=== PATIENT | female | born 1940 | race Caucasian/White ===

== ENCOUNTER 2019-03-25 10:29 | Outpatient (CLI) | payer MEDICARE ==
--- NOTE | 2019-03-25 12:22 | BD ---
DEXA BONE DENSITY STUDY: Date: 03/25/19 HISTORY: 78-year-old postmenopausal female for screening. FINDINGS: Lumbar Spine: BMD (g/cm2) L1 0.863 T-Score: -1.2 L2 1.183 T-Score: 1.4 L3 1.225 T-Score: 1.3 L4 1.158 T-Score: 0.9 L1-L4 1.108 T-Score: 0.6 Left Femoral Neck: 0.563 T-Score: -2.6 Total Femur: 0.702 T-Score: -2.0 IMPRESSION: Osteoporosis. POS: CET
--- NOTE | 2019-04-20 14:24 | MMO ---
Bilateral MAMMO Bilat Screen [facility]. CLINICAL HISTORY: Patient is 78 years old and is seen for screening. The patient has no family history of breast cancer. The patient has a history of uterine cancer. VIEWS: The views performed were: bilateral craniocaudal with tomosynthesis and bilateral mediolateral oblique with tomosynthesis. This study has been interpreted with the assistance of computer-aided detection. MAMMOGRAM FINDINGS: There are scattered fibroglandular densities. There are no suspicious masses, suspicious calcifications, or new areas of architectural distortion. IMPRESSION: THERE IS NO MAMMOGRAPHIC EVIDENCE OF MALIGNANCY. A ROUTINE FOLLOW-UP MAMMOGRAM IN 1 YEAR IS RECOMMENDED. THE RESULTS OF THIS EXAM WERE SENT TO THE PATIENT. ACR BI-RADS Category 1 - Negative MAMMOGRAPHY NOTE: 1. A negative mammogram report should not delay a biopsy if a dominant of clinically suspicious mass is present. 2. Approximately 10% to 15% of breast cancers are not detected by mammography. 3. Adenosis and dense breasts may obscure an underlying neoplasm. Reported by: TATA CASTELAN MD Electonically Signed: [id number]
== END 2019-03-25 10:30 | disposition home or self-care (01) ==
LOC: BICMAMMO 10:29
PROVIDERS: ATTEND Family Medicine
DX: Z12.31 Encounter for screening mammogram for malignant neoplasm of breast (principal); M81.0 Age-related osteoporosis without current pathological fracture; Z85.42 Personal history of malignant neoplasm of other parts of uterus
CPT/HCPCS: 77063; 77067; 77080

== ENCOUNTER 2019-07-19 12:37 | Outpatient (CLI) | payer MEDICARE ==
--- NOTE | 2019-07-19 13:03 | RAD ---
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 FINDINGS: No comparison. Cardiac silhouette and pulmonary vasculature are unremarkable. Mediastinum i s midline. No confluent airspace consolidation, pneumothorax, or pleural fluid. Nipple shadows overlie the lung bases on the frontal view. Dystrophic calcification projects over the left rotator c uff. IMPRESSION: No active cardiopulmonary abnormalities are demonstrated. No evidence of active tuberculo us disease.
== END 2019-07-19 12:38 | disposition home or self-care (01) ==
LOC: BICRAD 12:37
PROVIDERS: ATTEND Family Medicine
DX: R76.11 Nonspecific reaction to tuberculin skin test without active tuberculosis (principal)
CPT/HCPCS: 36415; 71046; 80053; 84443; 85025

== ENCOUNTER 2022-01-27 01:10 | Inpatient (IN) | payer MEDICARE ==
[2022-01-27] MEDS ORDERED: HYDROcodone/Acetaminophen 7.5/325 mg Tablet PO PRN (02:36)
[2022-01-27] MEDS ORDERED: Zolpidem Tartrate 5 MG TAB PO PRN (02:36)
[2022-01-27] MEDS ORDERED: Bisacodyl 5 MG TAB PO PRN (02:36)
[2022-01-27] MEDS ORDERED: Milk Of Magnesia 30 ML UDCUP PO PRN (02:37)
[2022-01-27] MEDS ORDERED: Morphine 2 MG/ML VIAL SLOW IVP PRN (02:38)
[2022-01-27] MEDS ORDERED: Vancomycin 1 GM in Premix Bag 1 BAG IVPB SCH (02:45)
[2022-01-27] MEDS: Sodium Chloride 0.9% 1,000 ML IV SCH (03:29)
[2022-01-27 06:27] LABS: #Lymphocytes 1.1 thou/uL (1.20-3.40); #Monocytes 0.6 thou/uL (0.11-0.59); #Neutrophils 6.9 thou/uL (1.40-6.50); %Basophils 0.4 % (0.0-1.0); %Eosinophils 0.4 % (0.0-10.0); %Lymphocytes 12.2 % (21.0-51.0); %Monocytes 6.8 % (0.0-10.0); %Neutrophils 80.2 % (42.0-75.0); Hemoglobin 11.5 g/dL (12.0-16.0); Mean Corpuscular HGB CONC 32.7 g/dL (32.0-36.0); Mean Platelet Volume 7.2 fL (7.4-10.4); Platelet Count 248 thou/uL (130-400); RBC Distribution Width 12.8 % (11.5-14.5); White Blood Cell (WBC) Count 8.7 thou/uL (4.8-10.8)
[2022-01-27 06:46] LABS: Anion Gap 9 mmol/L (10-20); BUN (Urea Nitrogen) 20 mg/dL (9.8-20.1); Calc. Creatinine Clearance 55 mL/min (70-130); Calcium 8.7 mg/dL (7.8-10.44); Carbon Dioxide 28 mmol/L (23-31); Chloride 109 mmol/L (98-107); Estimated GFR 80; Glucose 108 mg/dL (83-110); Potassium 4.4 mmol/L (3.5-5.1); Sodium 142 mmol/L (136-145)
[2022-01-27] MEDS: Enoxaparin Sodium 30 MG/0.3 ML SYRINGE SC SCH (08:00)
[2022-01-27] MEDS: Cholecalciferol 1,000 UNITS (25 MCG) TAB PO SCH ×2 (08:00→08:25)
[2022-01-27] MEDS: Lorazepam 1 MG TAB PO PRN ×2 (08:00→14:51)
[2022-01-27] MEDS: Haloperidol Lactate 5 MG/ML VIAL IM SCH ×2 (15:42→16:51)
[2022-01-27] MEDS ORDERED: Haloperidol Lactate 5 MG/ML VIAL SLOW IVP SCH (16:00)
[2022-01-27] MEDS ORDERED: VANCOMYCIN 1.25 GM/250 ML BAG 1.25 GM in Premix Bag 1 BAG IVPB SCH (17:00)
[2022-01-27] MEDS ORDERED: Haloperidol Lactate 5 MG/ML VIAL IM SCH (19:15)
[2022-01-27] MEDS: traZODone HCl 50 MG TAB PO SCH (20:28)
[2022-01-27] MEDS: Mirtazapine 15 MG TAB PO SCH (20:28)
[2022-01-27] MEDS ORDERED: Lorazepam (BATCHED) 2 MG/ML SYR SLOW IVP SCH (21:30)
[2022-01-27] MEDS ORDERED: Piperacillin/Tazobactam 3.375 GM in Sodium Chloride 0.9% 100 ML IVPB SCH (22:00)
[2022-01-27] MEDS ORDERED: Piperacillin/Tazobactam 4.5 GM in Sodium Chloride 0.9% 100 ML IVPB SCH (22:00)
[2022-01-28] MEDS: Sodium Chloride 0.9% 1,000 ML IV SCH (05:17)
[2022-01-28] MEDS: Piperacillin/Tazobactam 3.375 GM in Sodium Chloride 0.9% 100 ML IVPB SCH ×2 (05:17→14:10)
[2022-01-28] MEDS: Cholecalciferol 1,000 UNITS (25 MCG) TAB PO SCH (09:10)
[2022-01-28] MEDS: Enoxaparin Sodium 30 MG/0.3 ML SYRINGE SC SCH (09:10)
[2022-01-28 12:34] LABS: Bacteria/HPF None Seen HPF (None Seen); Bilirubin Negative (Negative); Blood, Urine Negative (Negative); Clarity Clear (Clear); Glucose, Urine (Dipstick) Normal (Negative); Ketone, Urine 10 mg/dL (Negative); Leukocyte Negative Leu/uL (Negative); Nitrite Negative (Negative); Protein, Urine (Dipstick) Negative (Neg-Trace); RBC/HPF 0-3 HPF (0-3); Squamous Epithelial None Seen HPF (0-3); Urobilinogen Normal mg/dL (Less than 2); WBC/HPF 0-3 HPF (0-3); pH, Urine 7.5 (5.0-9.0)
[2022-01-28 12:38] LABS: Urine Culture Reflex No No
[2022-01-28] MEDS: traZODone HCl 50 MG TAB PO SCH (20:32)
[2022-01-28] MEDS: Amoxicillin/Potassium Clav 875 MG TAB PO SCH (20:32)
[2022-01-28] MEDS: Doxycycline 100 MG CAP PO SCH (20:32)
[2022-01-28] MEDS: Mirtazapine 15 MG TAB PO SCH (20:32)
[2022-01-29] MEDS: Acetaminophen 325 MG TAB PO PRN ×3 (06:04→20:54)
[2022-01-29] MEDS: Enoxaparin Sodium 40 MG/0.4 ML SYRINGE SC SCH ×2 (08:41→12:48)
[2022-01-29] MEDS: Doxycycline 100 MG CAP PO SCH ×2 (08:41→20:50)
[2022-01-29] MEDS: Amoxicillin/Potassium Clav 875 MG TAB PO SCH ×2 (08:41→20:51)
[2022-01-29] MEDS: Cholecalciferol 1,000 UNITS (25 MCG) TAB PO SCH (08:41)
[2022-01-29 08:52] LABS: #Basophils 0.1 thou/uL (0.0-0.2); #Eosinphils 0.2 thou/uL (0.0-0.7); #Lymphocytes 0.8 thou/uL (1.20-3.40); #Monocytes 0.7 thou/uL (0.11-0.59); #Neutrophils 5.8 thou/uL (1.40-6.50); %Basophils 0.7 % (0.0-1.0); %Eosinophils 2.6 % (0.0-10.0); %Lymphocytes 10.8 % (21.0-51.0); %Monocytes 8.6 % (0.0-10.0); %Neutrophils 77.3 % (42.0-75.0); Hemoglobin 11.4 g/dL (12.0-16.0); Mean Corpuscular HGB CONC 32.3 g/dL (32.0-36.0); Mean Corpuscular Hemoglobin 31.1 pg (27.0-31.0); Mean Corpuscular Volume 96.1 fL (78.0-98.0); Mean Platelet Volume 7.2 fL (7.4-10.4); Platelet Count 252 thou/uL (130-400); RBC Distribution Width 12.9 % (11.5-14.5); Red Blood Cell (RBC) Count 3.67 mill/uL (4.20-5.40); White Blood Cell (WBC) Count 7.5 thou/uL (4.8-10.8)
[2022-01-29 09:24] LABS: Calcium 8.4 mg/dL (7.8-10.44); Chloride 106 mmol/L (98-107); Potassium 3.1 mmol/L (3.5-5.1); Sodium 139 mmol/L (136-145)
[2022-01-29 09:25] LABS: Glucose 98 mg/dL (83-110)
[2022-01-29 09:26] LABS: Anion Gap 12 mmol/L (10-20); Carbon Dioxide 24 mmol/L (23-31)
[2022-01-29 09:28] LABS: Calc. Creatinine Clearance 61 mL/min (70-130); Estimated GFR 88
[2022-01-29 09:29] LABS: BUN (Urea Nitrogen) 9 mg/dL (9.8-20.1)
[2022-01-29] MEDS: Sodium Chloride 0.9% 1,000 ML IV SCH ×2 (18:30)
[2022-01-29] MEDS: traZODone HCl 50 MG TAB PO SCH (20:51)
[2022-01-29] MEDS: Mirtazapine 15 MG TAB PO SCH (20:51)
[2022-01-30] MEDS: Acetaminophen 325 MG TAB PO PRN ×3 (05:51→20:50)
[2022-01-30] MEDS: Potassium Chloride 20 MEQ TAB PO SCH ×2 (09:37→13:29)
[2022-01-30] MEDS: Cholecalciferol 1,000 UNITS (25 MCG) TAB PO SCH (09:38)
[2022-01-30] MEDS: Amoxicillin/Potassium Clav 875 MG TAB PO SCH ×2 (09:38→19:09)
[2022-01-30] MEDS: Doxycycline 100 MG CAP PO SCH ×2 (09:38→19:19)
[2022-01-30] MEDS: Enoxaparin Sodium 40 MG/0.4 ML SYRINGE SC SCH (09:38)
[2022-01-30] MEDS: Sodium Chloride 0.9% 1,000 ML IV SCH (13:35)
[2022-01-30] MEDS: traZODone HCl 50 MG TAB PO SCH (19:10)
[2022-01-30] MEDS: Mirtazapine 15 MG TAB PO SCH (19:10)
[2022-01-30] MEDS: Lorazepam 1 MG TAB PO PRN (19:10)
[2022-01-30] MEDS ORDERED: Estrogens, Conjugated 30 GM TUBE VAG SCH (21:00)
[2022-01-31] MEDS: Acetaminophen 325 MG TAB PO PRN ×2 (05:43→16:36)
[2022-01-31] MEDS: Sodium Chloride 0.9% 1,000 ML IV SCH (05:49)
[2022-01-31] MEDS: Doxycycline 100 MG CAP PO SCH ×2 (09:08→20:14)
[2022-01-31] MEDS: Amoxicillin/Potassium Clav 875 MG TAB PO SCH ×2 (09:08→20:14)
[2022-01-31] MEDS: Enoxaparin Sodium 40 MG/0.4 ML SYRINGE SC SCH (09:08)
[2022-01-31] MEDS: Cholecalciferol 1,000 UNITS (25 MCG) TAB PO SCH (09:08)
[2022-01-31] MEDS: Estradiol 0.01% Vaginal Cream 42.5 gm Tube VAG SCH (09:08)
[2022-01-31] MEDS: Lorazepam 1 MG TAB PO PRN ×2 (18:19→21:52)
[2022-01-31] MEDS: Mirtazapine 15 MG TAB PO SCH (20:14)
[2022-01-31] MEDS: traZODone HCl 50 MG TAB PO SCH (20:14)
[2022-02-01] MEDS ORDERED: Electrolyte Replacement Protocol 1 EACH FS SCH (06:30)
[2022-02-01 06:53] LABS: #Eosinphils 0.2 thou/uL (0.0-0.7); #Lymphocytes 0.9 thou/uL (1.20-3.40); #Monocytes 0.7 thou/uL (0.11-0.59); %Basophils 0.6 % (0.0-1.0); %Eosinophils 3.6 % (0.0-10.0); %Monocytes 12.2 % (0.0-10.0); %Neutrophils 68.6 % (42.0-75.0); Hemoglobin 11.9 g/dL (12.0-16.0); Mean Corpuscular HGB CONC 31.9 g/dL (32.0-36.0); Mean Corpuscular Hemoglobin 30.9 pg (27.0-31.0); Mean Corpuscular Volume 96.8 fL (78.0-98.0); Mean Platelet Volume 6.8 fL (7.4-10.4); Platelet Count 245 thou/uL (130-400); RBC Distribution Width 12.8 % (11.5-14.5); Red Blood Cell (RBC) Count 3.84 mill/uL (4.20-5.40); White Blood Cell (WBC) Count 5.8 thou/uL (4.8-10.8)
[2022-02-01 07:15] LABS: ALT (SGPT) 50 U/L (8-55); AST (SGOT) 34 U/L (5-34); Albumin 3.6 g/dL (3.4-4.8); Alkaline Phosphatase 71 U/L (40-110); Anion Gap 13 mmol/L (10-20); BUN (Urea Nitrogen) 7 mg/dL (9.8-20.1); Bilirubin, Total 0.5 mg/dL (0.2-1.2); Calc. Creatinine Clearance 64 mL/min (70-130); Calcium 8.9 mg/dL (7.8-10.44); Carbon Dioxide 24 mmol/L (23-31); Chloride 107 mmol/L (98-107); Estimated GFR 90; Globulin 2.8 g/dL (2.4-3.5); Glucose 101 mg/dL (83-110); Magnesium 1.7 mg/dL (1.6-2.6); Phosphorus 2.9 mg/dL (2.3-4.7); Potassium 3.5 mmol/L (3.5-5.1); Protein, Total 6.4 g/dL (5.8-8.1); Sodium 140 mmol/L (136-145)
[2022-02-01] MEDS ORDERED: Potassium Chloride 20 MEQ TAB PO SCH (07:30)
[2022-02-01] MEDS: Doxycycline 100 MG CAP PO SCH ×2 (08:46→21:00)
[2022-02-01] MEDS: Cholecalciferol 1,000 UNITS (25 MCG) TAB PO SCH (08:46)
[2022-02-01] MEDS: Amoxicillin/Potassium Clav 875 MG TAB PO SCH ×2 (08:46→20:59)
[2022-02-01] MEDS: Sodium Chloride 0.9% 1,000 ML IV SCH (08:46)
[2022-02-01] MEDS: Enoxaparin Sodium 40 MG/0.4 ML SYRINGE SC SCH (08:46)
[2022-02-01] MEDS: Estradiol 0.01% Vaginal Cream 42.5 gm Tube VAG SCH (08:47)
[2022-02-01] MEDS ORDERED: Magnesium 2 GM/50 ML(in water) 2 GM in Premix Bag 1 BAG IVPB SCH (13:30)
[2022-02-01] MEDS ORDERED: Multivitamins, Adult 10 ML in D5 1/2 NS w/20 mEq KCL 1,000 ML IV SCH (16:30)
[2022-02-01] MEDS ORDERED: Multivitamins, Adult 10 ML, Potassium Chloride 20 MEQ in Dextrose 5 %-0.45 % NaCl 1,000 ML IV SCH (17:00)
[2022-02-01] MEDS: Folic Acid 1 MG TAB PO SCH (20:59)
[2022-02-01] MEDS: Cyanocobalamin (Vitamin B-12) 1,000 MCG TAB PO SCH (20:59)
[2022-02-01] MEDS: traZODone HCl 50 MG TAB PO SCH (21:00)
[2022-02-01] MEDS: Mirtazapine 15 MG TAB PO SCH (21:00)
[2022-02-01] MEDS: Senokot S 8.6-50 MG TAB PO SCH (21:00)
[2022-02-01] MEDS ORDERED: Multivit, Therapeutic 1 TAB PO SCH (21:00)
[2022-02-01] MEDS: Lorazepam 0.5 MG TAB PO PRN (21:54)
[2022-02-02 06:50] LABS: #Eosinphils 0.1 thou/uL (0.0-0.7); #Lymphocytes 0.7 thou/uL (1.20-3.40); #Monocytes 0.8 thou/uL (0.11-0.59); #Neutrophils 3.7 thou/uL (1.40-6.50); %Basophils 0.8 % (0.0-1.0); %Eosinophils 1.3 % (0.0-10.0); %Lymphocytes 13.5 % (21.0-51.0); %Monocytes 14.2 % (0.0-10.0); %Neutrophils 70.1 % (42.0-75.0); Hemoglobin 12.7 g/dL (12.0-16.0); Mean Corpuscular Hemoglobin 31.3 pg (27.0-31.0); Mean Platelet Volume 7.4 fL (7.4-10.4); Platelet Count 259 thou/uL (130-400); RBC Distribution Width 12.5 % (11.5-14.5); Red Blood Cell (RBC) Count 4.05 mill/uL (4.20-5.40); White Blood Cell (WBC) Count 5.3 thou/uL (4.8-10.8)
[2022-02-02 07:17] LABS: Anion Gap 12 mmol/L (10-20); BUN (Urea Nitrogen) 9 mg/dL (9.8-20.1); Calc. Creatinine Clearance 57 mL/min (70-130); Calcium 9.3 mg/dL (7.8-10.44); Carbon Dioxide 27 mmol/L (23-31); Chloride 106 mmol/L (98-107); Estimated GFR 84; Glucose 112 mg/dL (83-110); Magnesium 2.1 mg/dL (1.6-2.6); Sodium 141 mmol/L (136-145)
[2022-02-02] MEDS: Cholecalciferol 1,000 UNITS (25 MCG) TAB PO SCH (08:20)
[2022-02-02] MEDS: Saccharomyces boulardii 250 MG CAP PO SCH (08:20)
[2022-02-02] MEDS: Senokot S 8.6-50 MG TAB PO SCH ×2 (08:20→20:45)
[2022-02-02] MEDS: Enoxaparin Sodium 40 MG/0.4 ML SYRINGE SC SCH (08:20)
[2022-02-02] MEDS: Doxycycline 100 MG CAP PO SCH ×2 (08:20→20:45)
[2022-02-02] MEDS: Amoxicillin/Potassium Clav 875 MG TAB PO SCH ×2 (08:20→20:45)
[2022-02-02] MEDS: Estradiol 0.01% Vaginal Cream 42.5 gm Tube VAG SCH (08:20)
[2022-02-02] MEDS: D5W-AA 4.25% with LYTES 1,000 ML IV SCH (12:45)
[2022-02-02] MEDS: Lorazepam 0.5 MG TAB PO PRN (18:05)
[2022-02-02] MEDS: Cyanocobalamin (Vitamin B-12) 1,000 MCG TAB PO SCH (20:45)
[2022-02-02] MEDS: Folic Acid 1 MG TAB PO SCH (20:45)
[2022-02-02] MEDS: Mirtazapine 15 MG TAB PO SCH (20:45)
[2022-02-02] MEDS: traZODone HCl 50 MG TAB PO SCH (20:45)
[2022-02-03] MEDS: D5W-AA 4.25% with LYTES 1,000 ML IV SCH (06:36)
[2022-02-03] MEDS: Amoxicillin/Potassium Clav 875 MG TAB PO SCH ×2 (09:24→21:40)
[2022-02-03] MEDS: Senokot S 8.6-50 MG TAB PO SCH ×2 (09:24→21:41)
[2022-02-03] MEDS: Cholecalciferol 1,000 UNITS (25 MCG) TAB PO SCH (09:24)
[2022-02-03] MEDS: Doxycycline 100 MG CAP PO SCH ×2 (09:24→21:40)
[2022-02-03] MEDS: Estradiol 0.01% Vaginal Cream 42.5 gm Tube VAG SCH ×2 (09:24→09:31)
[2022-02-03] MEDS: Saccharomyces boulardii 250 MG CAP PO SCH (09:24)
[2022-02-03] MEDS: Enoxaparin Sodium 40 MG/0.4 ML SYRINGE SC SCH ×2 (09:24→09:31)
[2022-02-03] MEDS ORDERED: Megestrol Acetate 40 MG TAB PO SCH (09:30)
[2022-02-03] MEDS: Lorazepam 0.5 MG TAB PO PRN (19:28)
[2022-02-03] MEDS: traZODone HCl 50 MG TAB PO SCH ×2 (19:29→21:41)
[2022-02-03] MEDS: Mirtazapine 15 MG TAB PO SCH ×2 (19:29→21:41)
[2022-02-03] MEDS: Cyanocobalamin (Vitamin B-12) 1,000 MCG TAB PO SCH (21:40)
[2022-02-03] MEDS: Folic Acid 1 MG TAB PO SCH (21:40)
[2022-02-03] MEDS: Megestrol Acetate 40 MG TAB PO SCH (21:41)
[2022-02-04] MEDS: D5W-AA 4.25% with LYTES 1,000 ML IV SCH (06:35)
[2022-02-04] MEDS: Doxycycline 100 MG CAP PO SCH (09:20)
[2022-02-04] MEDS: Cholecalciferol 1,000 UNITS (25 MCG) TAB PO SCH (09:20)
[2022-02-04] MEDS: Amoxicillin/Potassium Clav 875 MG TAB PO SCH (09:20)
[2022-02-04] MEDS: Saccharomyces boulardii 250 MG CAP PO SCH (09:21)
[2022-02-04] MEDS: Estradiol 0.01% Vaginal Cream 42.5 gm Tube VAG SCH (09:21)
[2022-02-04] MEDS: Senokot S 8.6-50 MG TAB PO SCH (09:21)
[2022-02-04] MEDS: Enoxaparin Sodium 40 MG/0.4 ML SYRINGE SC SCH (09:21)
[2022-02-04] MEDS: Megestrol Acetate 40 MG TAB PO SCH (09:21)
[2022-02-04 12:23] VITALS: BP 129/74; TEMP 98.7
== END 2022-02-04 13:56 | DRG 602 ==
LOC: T4-A 01:45 → OBSVTOIN 02:36
PROVIDERS: ADMIT Internal Medicine; ATTEND Internal Medicine
DX: L03.115 Cellulitis of right lower limb (principal); Z20.822 Contact with and (suspected) exposure to COVID-19; Z66 Do not resuscitate; G93.41 Metabolic encephalopathy; F05 Delirium due to known physiological condition; E44.0 Moderate protein-calorie malnutrition; R33.9 Retention of urine, unspecified; F03.90 Unspecified dementia, unspecified severity, without behavioral disturbance, psychotic disturbance, mood disturbance, and anxiety; D53.9 Nutritional anemia, unspecified; E87.6 Hypokalemia; N18.2 Chronic kidney disease, stage 2 (mild); E83.42 Hypomagnesemia; F39 Unspecified mood [affective] disorder; E78.5 Hyperlipidemia, unspecified; F41.9 Anxiety disorder, unspecified; K59.00 Constipation, unspecified; Z68.20 Body mass index [BMI] 20.0-20.9, adult; Z90.710 Acquired absence of both cervix and uterus; Z85.038 Personal history of other malignant neoplasm of large intestine; Z78.1 Physical restraint status; Z79.899 Other long term (current) drug therapy; Z87.440 Personal history of urinary (tract) infections
CPT/HCPCS: 36415; 74018; 80048; 80053; 81001; 83735; 84100; 85025; 97139; J1630; J1650; J2060; J2543; J3370; J3475; J3480; J3490; J7042; J7050